=== PATIENT | male | born 1940 | race Caucasian/White ===

== ENCOUNTER 2017-10-19 14:12 | Inpatient (IN) | payer MEDICARE, OTHER ==
[~2017-10-19] VITALS: Ht 180.3 cm; Wt 81.0 kg
--- NOTE | ~2017-10-19 | OP ---
PATIENT NAME: MAGDIEL OLEA MEDICAL RECORD: [id number] LOCATION:D. D.2104 ADMISSION DATE:10/19/17 SURGEON: MARK SETHI MD DATE OF OPERATION: 10/19/2017 SURGEON: Mark Sethi M.D. ANESTHESIA: General anesthesia by Black Campbell CRNA. PREOPERATIVE DIAGNOSES: Urinary retention, urethral stricture, inability to be catheterized. PROCEDURES: Cystoscopy, Ramirez catheter insertion over a wire. FINDINGS: Urethral stricture with angulation at the perineal urethrostomy. SPECIMEN: Urine for culture. ESTIMATED BLOOD LOSS: None. CLINICAL HISTORY: This is a 76-year-old male who was transferred here from [place], [place] with acute urinary retention. He last voided yesterday morning, which is over 36 hours ago. He is in acute renal failure with a creatinine over 2. He has a history of colon cancer treated 25 years ago with partial colectomy and a permanent colostomy. He was also treated with pelvic radiation. The pelvic radiation led to urethral stricturing and he has a perineal urethrostomy. Since he was unable to void, the physicians in [place] tried to catheterize him without any success. He was therefore transferred here for management. Consent was obtained. 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 He is not allergic to any medications. He is on Coumadin and his INR was 3.0. He comes now for urethral stricture incision and insertion of a Ramirez catheter. DESCRIPTION OF PROCEDURE: The patient was given induction of general anesthesia. He was placed in dorsal lithotomy position. Perineal urethrostomy was prepped and draped. We used an optic urethrotome with a 0-degree lens. Going into the perineal urethrostomy, I identified that the urethra actually went quite a distance posteriorly. Therefore, I inserted the sensor wire into the urethra and it went easily into the bladder. I did not follow the cystoscope as the urethral opening was too tight for the scope. I did not wish to perform an incision as that may compromise his external urinary sphincter and also create excessive bleeding as he is anticoagulated. Once the wire was in the bladder, the scope was removed. Over the wire, we inserted a 16-[place] tip catheter. We then started to get bladder urine out through the catheter. Urine was obtained for culture through the catheter. The guidewire was removed entirely and then the balloon was inflated with 10 cc of sterile water. The patient has at least 800 mL of urine as a residual. The patient will be observed until he gets over his postobstructive diuresis and his renal function continues to normalize. TRANSINT:[id number] Voice Confirmation ID: [id number] DOCUMENT ID: [id number] OPERATIVE REPORT [id number] MAGDIEL OLEA ROBERT S MD at 1103 CC: [id number] DICTATION DATE: 10/19/172036 EGG TRAYER: 10/20/17 0145 ADM IN [place] [id number] [place] [id number]
[2017-10-19] MEDS ORDERED: ENTRESTO 24 MG1 EACH PO (17:29)
[2017-10-19] MEDS ORDERED: COUMADIN1 MG PO (17:30)
[2017-10-19] MEDS ORDERED: ALDACTONE25 MG PO (17:31)
[2017-10-19] MEDS ORDERED: MEXITIL 150 MG150 MG PO (17:32)
[2017-10-19] MEDS ORDERED: COREG12.5 MG PO (17:32)
[2017-10-19] MEDS ORDERED: OMEPRAZOLE40 MG PO (17:35)
[2017-10-19] MEDS ORDERED: ZOCOR40 MG PO (17:36)
[2017-10-19] MEDS ORDERED: FUROSEMIDE (17:38)
[2017-10-19] MEDS ORDERED: BREO ELLIPTA 11 EACH INH (17:39)
[2017-10-19] MEDS ORDERED: BAYER CHEWABLE81 MG PO (17:39)
[2017-10-19] MEDS ORDERED: SPIRIVA18 MCG INH (17:41)
[2017-10-19] MEDS ORDERED: IPRAT-ALBUT 0.5-3 ML UPD (17:41)
[2017-10-19 18:32] VITALS: BP 117/77; BMI 23.7
[2017-10-20 00:30] VITALS: BP 94/59
[2017-10-20 04:30] VITALS: BP 100/62
[2017-10-20 08:32] VITALS: BP 91/62
[2017-10-20 11:46] VITALS: BP 112/60
[2017-10-20 12:59] VITALS: BMI 23.7
[2017-10-20 13:56] LABS: HEMATOCRIT 41.9 % (42.0-54.0); LYMPHOCYTES 17.3 % (15-50); MCH 24.6 pg (26.0-34.0); MCV 79.2 fL (80.0-100.0); MEAN PLATELET VOLUME 9.3 fL (7.4-10.4); NEUTROPHILS 68.7 % (40-80); PLATELET COUNT 246 10x3/uL (130-400); RBC 5.29 10x6/uL (4.20-6.10); RDW 16.8 % (11.5-14.5); WBC 9.2 10x3/uL (4.8-10.8)
[2017-10-20 14:14] LABS: INR 2.73 (0.85-1.17); PROTIME 28.2 SECONDS (11.6-15.0)
[2017-10-20 14:19] LABS: ALBUMIN 3.4 g/dL (3.4-5.0); ANION GAP 13.2 mmol/L (8-16); BILIRUBIN - TOTAL 0.4 mg/dL (0.2-1.3); CALCIUM 7.9 mg/dL (8.5-10.1); CARBON DIOXIDE 20.4 mmol/L (21.0-32.0); CREATININE - SERUM 1.4 mg/dL (0.6-1.3); POTASSIUM - SERUM 4.6 mmol/L (3.5-5.1); PROTEIN - SERUM 7.1 g/dL (6.4-8.2)
[2017-10-20 15:26] VITALS: BP 116/60
[2017-10-20] MEDS ORDERED: COUMADIN6 MG PO (18:10)
[2017-10-20] MEDS ORDERED: CITRATE OF MAG300 ML PO ×2 (18:12→18:13)
[2017-10-20 20:43] VITALS: BP 82/56
[2017-10-21 04:00] VITALS: BP 90/60
[2017-10-21 06:22] LABS: INR 2.53 (0.85-1.17); PROTIME 26.6 SECONDS (11.6-15.0)
[2017-10-21 06:31] LABS: ALBUMIN 2.8 g/dL (3.4-5.0); ANION GAP 12.2 mmol/L (8-16); BILIRUBIN - TOTAL 0.37 mg/dL (0.2-1.3); CALCIUM 7.7 mg/dL (8.5-10.1); CARBON DIOXIDE 23.2 mmol/L (21.0-32.0); CREATININE - SERUM 1.2 mg/dL (0.6-1.3); POTASSIUM - SERUM 4.4 mmol/L (3.5-5.1)
[2017-10-21 06:57] LABS: HEMATOCRIT 36.8 % (42.0-54.0); HEMOGLOBIN 11.7 g/dL (13.5-17.5); LYMPHOCYTES 17.1 % (15-50); MCH 25.1 pg (26.0-34.0); MCHC 31.8 g/dL (31.0-37.0); MCV 78.8 fL (80.0-100.0); MEAN PLATELET VOLUME 9.8 fL (7.4-10.4); NEUTROPHILS 65.7 % (40-80); PLATELET COUNT 203 10x3/uL (130-400); RBC 4.67 10x6/uL (4.20-6.10); RDW 16.7 % (11.5-14.5)
[2017-10-21 06:58] LABS: WBC 5.8 10x3/uL (4.8-10.8)
[2017-10-21 09:13] VITALS: BP 118/65
[2017-10-21 13:46] VITALS: BP 120/70
[2017-10-21 17:46] VITALS: BP 116/70
[2017-10-21 20:00] VITALS: BP 148/62
[2017-10-22 04:00] VITALS: BP 95/60
[2017-10-22 05:56] LABS: BASOPHILS 0.2 % (0-2); EOSINOPHILS 5.4 % (0-7); HEMATOCRIT 35.9 % (42.0-54.0); HEMOGLOBIN 11.1 g/dL (13.5-17.5); IMMATURE GRANULOCYTES 0.2 % (0-5); LYMPHOCYTES 19.2 % (15-50); MCH 24.6 pg (26.0-34.0); MCHC 30.9 g/dL (31.0-37.0); MCV 79.4 fL (80.0-100.0); MEAN PLATELET VOLUME 9.9 fL (7.4-10.4); PLATELET COUNT 222 10x3/uL (130-400); RBC 4.52 10x6/uL (4.20-6.10); RDW 16.7 % (11.5-14.5); WBC 5.2 10x3/uL (4.8-10.8)
[2017-10-22 06:22] LABS: INR 2.22 (0.85-1.17)
[2017-10-22 06:52] LABS: ALBUMIN 2.8 g/dL (3.4-5.0); ALKALINE PHOSPHATASE 72 U/L (46-116); ALT (SGPT) 17 U/L (10-68); BILIRUBIN - TOTAL 0.39 mg/dL (0.2-1.3); CALC OSMOLALITY 276 mosm/kg (275-300); CALCIUM 7.6 mg/dL (8.5-10.1); CARBON DIOXIDE 20.5 mmol/L (21.0-32.0); CHLORIDE - SERUM 104 mmol/L (98-107); CREATININE - SERUM 0.9 mg/dL (0.6-1.3); GLUCOSE 92 mg/dL (74-106); POTASSIUM - SERUM 4.4 mmol/L (3.5-5.1); SODIUM 136 mmol/L (136-145); UREA NITROGEN 26 mg/dL (7-18); eGFR NON AFRICAN AMERICAN 88 mL/min (90-120)
[2017-10-22 09:10] VITALS: BP 102/50
[2017-10-22 12:16] VITALS: BP 92/52
[2017-10-22 16:45] VITALS: BP 130/83
[2017-10-22 20:00] VITALS: BP 112/70
[2017-10-23 05:30] LABS: BASOPHILS 0.1 % (0-2); EOSINOPHILS 2.4 % (0-7); HEMATOCRIT 38.4 % (42.0-54.0); HEMOGLOBIN 11.8 g/dL (13.5-17.5); IMMATURE GRANULOCYTES 0.5 % (0-5); LYMPHOCYTES 17.2 % (15-50); MCH 24.8 pg (26.0-34.0); MCHC 30.7 g/dL (31.0-37.0); MCV 80.8 fL (80.0-100.0); MEAN PLATELET VOLUME 9.7 fL (7.4-10.4); MONOCYTES 10.8 % (2-11); PLATELET COUNT 248 10x3/uL (130-400); RBC 4.75 10x6/uL (4.20-6.10); RDW 17.1 % (11.5-14.5)
[2017-10-23 05:31] LABS: WBC 7.6 10x3/uL (4.8-10.8)
[2017-10-23 05:35] LABS: INR 2.7 (0.85-1.17)
[2017-10-23 05:51] LABS: ALBUMIN 2.7 g/dL (3.4-5.0); ALKALINE PHOSPHATASE 73 U/L (46-116); BILIRUBIN - TOTAL 0.34 mg/dL (0.2-1.3); CALCIUM 7.7 mg/dL (8.5-10.1); CARBON DIOXIDE 17.6 mmol/L (21.0-32.0); CHLORIDE - SERUM 104 mmol/L (98-107); PROTEIN - SERUM 6.2 g/dL (6.4-8.2); SODIUM 134 mmol/L (136-145); eGFR NON AFRICAN AMERICAN 78 mL/min (90-120)
[2017-10-23 05:54] LABS: ALT (SGPT) 23 U/L (10-68); CALC OSMOLALITY 273 mosm/kg (275-300); GLUCOSE 70 mg/dL (74-106); POTASSIUM - SERUM 5.5 mmol/L (3.5-5.1); UREA NITROGEN 35 mg/dL (7-18)
[2017-10-23 06:12] VITALS: BP 109/61
[2017-10-23 08:38] VITALS: BP 106/68
[2017-10-23 12:30] VITALS: BP 88/52
[2017-10-23 16:40] VITALS: Ht 180.3 cm; Wt 81.0 kg
[2017-10-23 20:00] VITALS: BP 100/60
[2017-10-24 04:00] VITALS: BP 90/60
[2017-10-24 04:19] LABS: ALBUMIN 2.8 g/dL (3.4-5.0); ANION GAP 8.8 mmol/L (8-16); BILIRUBIN - TOTAL 0.22 mg/dL (0.2-1.3); CREATININE - SERUM 1.1 mg/dL (0.6-1.3); POTASSIUM - SERUM 4.8 mmol/L (3.5-5.1); PROTEIN - SERUM 6.2 g/dL (6.4-8.2)
[2017-10-24 04:23] LABS: INR 3.58 (0.85-1.17)
[2017-10-24 04:25] LABS: BASOPHILS 0.3 % (0-2); HEMATOCRIT 37.4 % (42.0-54.0); HEMOGLOBIN 11.6 g/dL (13.5-17.5); IMMATURE GRANULOCYTES 0.4 % (0-5); LYMPHOCYTES 15.4 % (15-50); MCH 24.8 pg (26.0-34.0); MCV 79.9 fL (80.0-100.0); MEAN PLATELET VOLUME 9.7 fL (7.4-10.4); MONOCYTES 11.9 % (2-11); PLATELET COUNT 231 10x3/uL (130-400); RBC 4.68 10x6/uL (4.20-6.10); RDW 17.4 % (11.5-14.5); WBC 7.2 10x3/uL (4.8-10.8)
[2017-10-24 08:48] VITALS: BP 90/62
[2017-10-24] MEDS ORDERED: FLAGYL500 MG PO (10:54)
[2017-10-24] MEDS ORDERED: PROSCAR5 MG PO (10:58)
[2017-10-24] MEDS ORDERED: FLOMAX0.4 MG PO ×2 (10:59)
[2017-10-24 11:46] VITALS: BP 89/520
== END 2017-10-24 14:48 | disposition home or self-care (01) | DRG 697 ==
LOC: D.M2 14:12
PROVIDERS: Emergency Medicine; Family Medicine; Urology
PROC: 0T9B80Z Drainage of Bladder with Drainage Device, Via Natural or Artificial Opening Endoscopic (ICD-10-PCS; principal; 2017-10-19 19:00)
DX: N35.8 Other urethral stricture (principal); N17.9 Acute kidney failure, unspecified; A04.72 Enterocolitis due to Clostridium difficile, not specified as recurrent; I10 Essential (primary) hypertension; I48.0 Paroxysmal atrial fibrillation; Z79.01 Long term (current) use of anticoagulants; J44.9 Chronic obstructive pulmonary disease, unspecified; I50.9 Heart failure, unspecified

== ENCOUNTER → 2017-11-19 18:10 | Outpatient (CLI) | payer MEDICARE, OTHER ==
[2017-10-23 16:40] VITALS: BMI 23.7
[~2017-11-19 18:10] MED LIST: ALDACTONE25 MG PO; BAYER CHEWABLE81 MG PO; BREO ELLIPTA 11 EACH INH; CITRATE OF MAG300 ML PO; COREG12.5 MG PO; COUMADIN1 MG PO; COUMADIN6 MG PO; ENTRESTO 24 MG1 EACH PO; FLAGYL500 MG PO; FLOMAX0.4 MG PO; FUROSEMIDE; IPRAT-ALBUT 0.5-3 ML UPD; MEXITIL 150 MG150 MG PO; OMEPRAZOLE40 MG PO; PROSCAR5 MG PO; SPIRIVA18 MCG INH; ZOCOR40 MG PO
== END | disposition home or self-care (01) ==
LOC: D.LABREF 18:10
DX: N39.0 Urinary tract infection, site not specified (principal)